=== PATIENT | male | born 1940 | race Caucasian/White ===

== ENCOUNTER 2017-03-22 19:26 | Emergency (ER) | payer OTHER ==
[~2017-03-22] VITALS: Ht 177.8 cm; Wt 84.5 kg
[~2017-03-22 19:26] MED LIST: ASPI-428 PO; DOXA4TAB5 PO; FINA5TAB PO; LATA0.5S OP; LORA-741 PO; PROP20TA67 PO; SERT50TA PO; TAMS0.4C38 PO
[2017-03-22 19:31] VITALS: TEMP 36.7; Ht 177.8 cm; Wt 84.5 kg
[2017-03-22] MEDS ORDERED: AMLO-110 PO (19:53)
[2017-03-22] MEDS ORDERED: TRAZ50TA35 PO (19:53)
[2017-03-22] MEDS ORDERED: OMEP40CA41 PO (19:53)
[2017-03-22] MEDS ORDERED: SUCR1TAB PO (19:53)
[2017-03-22 20:16] LABS: BASO % 0.5 %; BASO ABS # 0.03 K/uL (0-0.2); COMPLETE YES; EOS % 2.5 %; HEMATOCRIT 42.1 % (42-52); IG% 0.7 %; LYMPH % 21.3 %; LYMPH ABS # 1.29 K/uL (1.2-3.4); MEAN CELL VOLUME 87.5 fL (80-100); MEAN CORPUSCULAR HEMOGLOBIN 28.7 pg (25-34); MEAN CORPUSCULAR HGB CONC 32.8 g/dl (32-36); MEAN PLATELET VOLUME 10.2 fL (7.4-10.4); MONO % 10.4 %; NEUT % 64.6 %; PLATELET COUNT 177 K/uL (130-400); RED BLOOD COUNT 4.81 M/uL (4.7-6.1); WHITE BLOOD COUNT 6.05 K/uL (4.8-10.8)
--- NOTE | 2017-03-22 20:22 | DIAGNOSTIC IMAGING REPORT ---
KUB CLINICAL HISTORY: Generalized abdominal pain. FINDINGS: 2 AP, portable, supine abdominal radiographs are correlated with abdominal CT dated 10/01/2016. There is a nonobstructed abdominal bowel gas pattern noting moderate constipation. Retained enteric contrast is seen throughout the colon. This outlines scattered diverticula. No evidence of intraperitoneal free air is seen on these supine views. No abnormal abdominal calcifications are identified. Cholecystectomy clips are noted in the right upper quadrant. The skeletal structures are osteopenic. Degenerative change is seen throughout the lumbar spine. There is a compression deformity with evidence of previous vertebroplasty in the thoracic region. The heart is enlarged and there are midline sternotomy wires. The lung bases are grossly clear as imaged. IMPRESSION: 1. Nonobstructed abdominal bowel gas pattern noting moderate constipation. 2. Retained enteric contrast is seen throughout the colon Electronically signed by: Mark Maurice M.D. 03/22/2017 8:20 PM Dictated Date/Time: 03/22/2017 8:18 PM
--- NOTE | 2017-03-22 20:33 | DIAGNOSTIC IMAGING REPORT ---
SINGLE VIEW CHEST CLINICAL HISTORY: Generalized abdominal pain. Atypical chest pain. FINDINGS: An AP, portable, upright chest radiograph is compared to study dated 10/01/2016. The examination is degraded by portable technique and patient rotation. The patient is status post midline sternotomy with evidence of previous mitral valve surgery. The heart is enlarged and there is atherosclerotic calcification of the thoracic aorta. The pulmonary vasculature is noncongested. Chronic interstitial thickening is similar to previous. There is mild elevation of left hemidiaphragm and bibasilar atelectasis. There is no airspace consolidation typical for pneumonia, large pleural effusion, or pneumothorax. The skeletal structures are osteopenic. The bony thorax is grossly intact. IMPRESSION: Cardiomegaly and bibasilar atelectasis. There is no acute cardiopulmonary abnormality. Electronically signed by: Mark Maurice M.D. 03/22/2017 8:32 PM Dictated Date/Time: 03/22/2017 8:30 PM
[2017-03-22 20:40] LABS: ALT/SGPT 158 U/L (12-78); BLOOD UREA NITROGEN 19 mg/dl (7-18); BUN/CREATININE RATIO 17.6 (10-20); CALCIUM 9.4 mg/dl (8.5-10.1); CARBON DIOXIDE 29 mmol/L (21-32); CHLORIDE 107 mmol/L (98-107); GLUCOSE 102 mg/dl (70-99); SODIUM 142 mmol/L (136-145)
[2017-03-22 20:44] LABS: ALKALINE PHOSPHATASE 94 U/L (45-117)
[2017-03-22 20:58] LABS: URINE APPEARANCE CLEAR (CLEAR); URINE BILIRUBIN NEG (NEG); URINE EPITHELIAL CELL AUTO 0-5 /lpf (0-5); URINE NITRITE NEG (NEG); URINE PH 7.5 (4.5-7.5); URINE SPECIFIC GRAVITY 1.012 (1.000-1.030); UROBILINOGEN NEG (NEG)
[2017-03-22 21:05] LABS: URINE COLOR YELLOW
[2017-03-22 21:06] LABS: MANUAL MICROSCOPIC REQUIRED? NO; REVIEW REQ? NO
[2017-03-22 21:14] LABS: POTASSIUM 3.8 mmol/L (3.5-5.1)
[2017-03-22 21:18] LABS: PARTIAL THROMBOPLASTIN RATIO 0.9; PROTHROMBIN TIME (PATIENT) 10.9 SECONDS (9.0-12.0)
[2017-03-22] MEDS ORDERED: CEPH500C2 PO (21:48)
[2017-03-22] MEDS ORDERED: CEPHALEXIN 500MG HOME PACK 1 EA BTL PO ONE (22:00)
[2017-03-22] MEDS ORDERED: CEPHALEXIN MONOHYDRATE 250 MG CAP PO ONE (22:00)
[2017-03-22] MEDS ORDERED: OXYCODONE HCL IR 5 MG TAB (IMMEDIATE RELEASE) PO STA (22:07)
[2017-03-22] MEDS ORDERED: OXYC1TAB3 PO (22:08)
[2017-03-22] MEDS ORDERED: OXYCODONE IR HOME PACK PO ONE (22:15)
[2017-03-22 22:41] VITALS: BP 127/80; PULSE 78; O2SAT 95
--- NOTE | 2017-03-22 23:38 | EMERGENCY ROOM VISIT NOTE ---
History Report prepared by Jackelin: Ilsa Boyd Under the Supervision of: Dr. Hua Patterson D.O. First contact with patient: 19:34 Chief Complaint: ABDOMINAL PAIN Stated Complaint: BLOOD IN URINE,ABD PAIN,CHEST PAIN History of Present Illness The patient is a 77 year old male who presents to the Emergency Room with complaints of an episode of abdominal pain starting three months ago. The patient states that he has a history of kidney stones and stents placed. He reports that he was told that if he starts to experience hematuria, fevers, and chills to call into the ED. He reports that he did and they told him to follow up with his PCP. He reports that they found nothing wrong and that it was just blood in his urine. He reports that yesterday he went to his PCP who sent him to the [facility]. The patient states that they found nothing wrong and told him to follow up with his PCP in three days. He reports he came here because he wants to know if it's another kidney stone. He complains of back pain , intermittent hematuria, chest pain, and fevers. He denies nausea, vomiting, shortness of breath, and swelling in legs. Source of History: patient Onset: three months ago Position: abdomen Quality: other (global) Timing: other (episode) Associated Symptoms: + back pain, + chest pain, + fevers, No SOB, No nausea , No vomiting Note: The patient complains of hematuria. The patient denies swelling in legs. Review of Systems See HPI for pertinent positives & negatives. A total of 10 systems reviewed and were otherwise negative. Past Medical & Surgical Surgical Problems: (1) History of appendectomy (2) Hx of cholecystectomy Family History No pertinent family history Social History Smoking Status: Former Smoker Alcohol Use: none Marital Status: Housing Status: lives with significant other Occupation Status: retired Current/Historical Medications Scheduled Amlodipine (Norvasc), 5 MG PO QAM Aspirin (Ecotrin Low Strength), 1 TAB PO DAILY Cephalexin Monohydrate (Keflex), 500 MG PO QID Latanoprost (Xalatan 0.005% Oph Annalisa), 1 DROPS OP HS Omeprazole (Prilosec), 40 MG PO QAM Trazodone Hcl (Trazodone), 50 MG PO HS Scheduled PRN Lorazepam (Ativan), 0.5 MG PO Q6H PRN for Anxiety/Agitation Oxycodone Immediate Rel Tab (Roxicodone Ir), 1-2 TAB PO Q4H PRN for Severe Pain Sucralfate (Sucralfate), 1 TAB PO QID PRN for PRN Allergies Coded Allergies: Nitroglycerin (Unverified Allergy, Unknown, UNKNOWN, 03/22/17) TOLD NEVER TO TAKE PER DOCTOR Oxycodone (Verified Adverse Reaction, Unknown, GI DISTRESS, 03/22/17) Physical Exam Vital Signs Date Time Temp Pulse Resp B/P Pulse Ox O2 Delivery O2 Flow Rate FiO2 03/22/17 22:41 78 20 127/80 95 03/22/17 20:12 92 18 157/82 94 Room Air 03/22/17 20:11 88 03/22/17 19:31 36.7 89 20 149/82 94 Room Air Physical Exam GENERAL: Patient is awake, alert, and in no acute distress. Patient is resting comfortably and showing no signs of anxiety EYES: The conjunctivae are clear. The pupils are round and reactive. EARS, NOSE, MOUTH AND THROAT: The nose is without any evidence of any deformity. Mucous membranes are moist tongue is midline NECK: The neck is nontender and supple. RESPIRATORY: Normal respiratory effort is noted there is no evidence of wheezing rhonchi or rales CARDIOVASCULAR: Regular rate and rhythm noted there no murmurs rubs or gallops normal S1 normal S2 GASTROINTESTINAL: The abdomen is soft. Bowel sounds are present in all quadrants. Abdomen is mildly distended, mild tenderness to palpitation. No guarding or rigidity. BACK: No midline tenderness to palpitation or or step-off noted range of motion in flexion extension as well as rotation no signs of muscle spasm noted. ROM intact. MUSCULOSKELETAL/EXTREMITIES: There is no evidence of gross deformity full range of motion is noted in the hips and shoulders SKIN: There is no obvious evidence of any rash. There are no petechiae, pallor or cyanosis noted. NEUROLOGIC: Patient is awake alert and oriented x3 strength is symmetric patellar reflexes are 2+ bilaterally Medical Decision & Procedures ER Provider Diagnostic Interpretation: Radiology results as stated below per my review and radiologist interpretation: SINGLE VIEW CHEST CLINICAL HISTORY: Generalized abdominal pain. Atypical chest pain. FINDINGS: An AP, portable, upright chest radiograph is compared to study dated 10/01/2016. The examination is degraded by portable technique and patient rotation. The patient is status post midline sternotomy with evidence of previous mitral valve surgery. The heart is enlarged and there is atherosclerotic calcification of the thoracic aorta. The pulmonary vasculature is noncongested. Chronic interstitial thickening is similar to previous. There is mild elevation of left hemidiaphragm and bibasilar atelectasis. There is no airspace consolidation typical for pneumonia, large pleural effusion, or pneumothorax. The skeletal structures are osteopenic. The bony thorax is grossly intact. IMPRESSION: Cardiomegaly and bibasilar atelectasis. There is no acute cardiopulmonary abnormality. Electronically signed by: Mark Maurice M.D. 03/22/2017 8:32 PM Dictated Date/Time: 03/22/2017 8:30 PM KUB CLINICAL HISTORY: Generalized abdominal pain. FINDINGS: 2 AP, portable, supine abdominal radiographs are correlated with abdominal CT dated 10/01/2016. There is a nonobstructed abdominal bowel gas pattern noting moderate constipation. Retained enteric contrast is seen throughout the colon. This outlines scattered diverticula. No evidence of intraperitoneal free air is seen on these supine views. No abnormal abdominal calcifications are identified. Cholecystectomy clips are noted in the right upper quadrant. The skeletal structures are osteopenic. Degenerative change is seen throughout the lumbar spine. There is a compression deformity with evidence of previous vertebroplasty in the thoracic region. The heart is enlarged and there are midline sternotomy wires. The lung bases are grossly clear as imaged. IMPRESSION: 1. Nonobstructed abdominal bowel gas pattern noting moderate constipation. 2. Retained enteric contrast is seen throughout the colon Electronically signed by: Mark Maurice M.D. 03/22/2017 8:20 PM Dictated Date/Time: 03/22/2017 8:18 PM Laboratory Results 03/22/17 20:02 Red Blood Count 4.81, Mean Corpuscular Volume 87.5, Mean Corpuscular Hemoglobin 28.7, Mean Corpuscular Hemoglobin Concent 32.8, Mean Platelet Volume 10.2, Neutrophils (%) (Auto) 64.6, Lymphocytes (%) (Auto) 21.3, Monocytes (%) (Auto) 10.4, Eosinophils (%) (Auto) 2.5, Basophils (%) (Auto) 0.5, Neutrophils # (Auto ) 3.91, Lymphocytes # (Auto) 1.29, Monocytes # (Auto) 0.63, Eosinophils # (Auto ) 0.15, Basophils # (Auto) 0.03 03/22/17 20:02 03/22/17 20:48 Test 03/22/17 20:02 03/22/17 20:42 03/22/17 20:48 White Blood Count 6.05 K/uL (4.8-10.8) Red Blood Count 4.81 M/uL (4.7-6.1) Hemoglobin 13.8 g/dL (14.0-18.0) Hematocrit 42.1 % (42-52) Mean Corpuscular Volume 87.5 fL (80-100) Mean Corpuscular Hemoglobin 28.7 pg (25-34) Mean Corpuscular Hemoglobin Concent 32.8 g/dl (32-36) Platelet Count 177 K/uL (130-400) Mean Platelet Volume 10.2 fL (7.4-10.4) Neutrophils (%) (Auto) 64.6 % Lymphocytes (%) (Auto) 21.3 % Monocytes (%) (Auto) 10.4 % Eosinophils (%) (Auto) 2.5 % Basophils (%) (Auto) 0.5 % Neutrophils # (Auto) 3.91 K/uL (1.4-6.5) Lymphocytes # (Auto) 1.29 K/uL (1.2-3.4) Monocytes # (Auto) 0.63 K/uL (0.11-0.59) Eosinophils # (Auto) 0.15 K/uL (0-0.5) Basophils # (Auto) 0.03 K/uL (0-0.2) RDW Standard Deviation 50.7 fL (36.4-46.3) RDW Coefficient of Variation 15.7 % (11.5-14.5) Immature Granulocyte % (Auto) 0.7 % Immature Granulocyte # (Auto) 0.04 K/uL (0.00-0.02) Anion Gap 6.0 mmol/L (3-11) Est Creatinine Clear Calc Drug Dose 59.9 ml/min Estimated GFR () 75.7 Estimated GFR (Non- 65.3 BUN/Creatinine Ratio 17.6 (10-20) Calcium Level 9.4 mg/dl (8.5-10.1) Total Bilirubin 0.8 mg/dl (0.2-1) Alanine Aminotransferase (ALT/SGPT) 158 U/L (12-78) Alkaline Phosphatase 94 U/L (45-117) Troponin I < 0.015 ng/ml (0-0.045) Total Protein 6.7 gm/dl (6.4-8.2) Albumin 3.7 gm/dl (3.4-5.0) Lipase 259 U/L (73-393) Urine Color YELLOW Urine Appearance CLEAR (CLEAR) Urine pH 7.5 (4.5-7.5) Urine Specific [place] 1.012 (1.000-1.030) Urine Protein NEG (NEG) Urine Glucose (UA) NEG (NEG) Urine Ketones NEG (NEG) Urine Occult Blood 3+ (NEG) Urine Nitrite NEG (NEG) Urine Bilirubin NEG (NEG) Urine Urobilinogen NEG (NEG) Urine Leukocyte Esterase NEG (NEG) Urine WBC (Auto) 0 /hpf (0-5) Urine RBC (Auto) >30 /hpf (0-4) Urine Hyaline Casts (Auto) 0 /lpf (0-5) Urine Epithelial Cells (Auto) 0-5 /lpf (0-5) Urine Bacteria (Auto) NEG (NEG) Prothrombin Time 10.9 SECONDS (9.0-12.0) Prothromb Time International Ratio 1.0 (0.9-1.1) Activated Partial Thromboplast Time 24.3 SECONDS (21.0-31.0) Partial Thromboplastin Ratio 0.9 Direct Bilirubin 0.2 mg/dl (0-0.2) Aspartate Amino Transf (AST/SGOT) 77 U/L (15-37) Laboratory results per my review. Medications Administered Medications (Trade) Dose Ordered Sig/Esme Route Start Time Stop Time Status Last Admin Dose Admin Cephalexin Monohydrate (Keflex 500MG Home Pack) 1 homepack NOW ONCE PO 03/22/17 22:00 03/22/17 22:01 DC 03/22/17 22:33 1 HOMEPACK Cephalexin Monohydrate (Keflex Cap) 500 mg NOW ONCE PO 03/22/17 22:00 03/22/17 22:01 DC 03/22/17 22:33 500 MG Oxycodone HCl (Roxicodone Immediate Rel Tab) 5 mg NOW STAT PO 03/22/17 22:07 03/22/17 22:08 DC 03/22/17 22:33 5 MG Oxycodone HCl (Roxicodone Immediate Rel 5MG Home Pack) 1 homepack UD ONCE PO 03/22/17 22:15 03/22/17 22:16 DC 03/22/17 22:33 1 HOMEPACK ECG Indication: abdominal pain Rate (beats per minute): 84 Rhythm: normal sinus Findings: nonspecific-ST abn, PVC Comparison ECG Date: 03/21/2017 Change: no significant change ED Course 1942: The patient was evaluated in room C1. A complete history and physical examination were performed. 2145: I discussed the patient's case with Dr. Cortes. 2199: Orderd Keflex Cap 500 mg PO, Keflex 500 MG Home Pack 1 homepack PO. 2206: Ordered Oxycodone HCl 5 mg PO. 2214: Ordered Oxycodone HCl 1 homepack PO. 2219: Upon reevaluation, the patient is resting comfortably. I discussed the results and treatment plan with him. The patient verbalized agreement of the treatment plan. He was discharged home. Medical Decision Differential diagnosis: Etiologies such as renal colic, appendicitis, diverticulitis, mesenteric ischemia, aortic pathology, infections, inflammatory bowel disease, PUD, biliary pathology, UTI, as well as others were entertained. Nursing notes reviewed. The patient is a 77-year-old male who presented to emergency department for an evaluation of hematuria. The patient complained of suprapubic pain but mostly this was painless hematuria at this time. The patient is a history of kidney stones. He was seen at [facility] yesterday for similar complaints and had a complete workup. I discussed the patient's laboratory and radiographic studies with him this evening. I also discussed his case with the on-call [facility] urologist. At this time I feel the patient can safely follow up as an outpatient. It is possible this represents an infection so he was started on antibiotic. It is also possible this could represent some other underlying pathology in his system. He was encouraged to follow-up with the urologist as soon as possible for reevaluation or return to the emergency department immediately if symptoms change worsen or the need arises. Consults Time Called: 2134 Consulting Physician: Dr. Cortes Returned Call: 2145 I discussed the patient's case with Dr. Cortes. Impression Primary Impression: Hematuria Scribe Attestation The scribe's documentation has been prepared under my direction and personally reviewed by me in its entirety. I confirm that the note above accurately reflects all work, treatment, procedures, and medical decision making performed by me. Departure Information Dispostion Home / Self-Care Prescriptions Oxycodone Immediate Rel Tab (ROXICODONE IR) 5 Mg Tab 1-2 TAB PO Q4H Y for Severe Pain, #24 TAB Prov: Hua Patterson, DO 03/22/17 Cephalexin Monohydrate (KEFLEX) 500 Mg Cap 500 MG PO QID, #28 CAP Prov: Hua Patterson, DO 03/22/17 Referrals Tyler Rojas M.D. (PCP) Forms HOME CARE DOCUMENTATION FORM, IMPORTANT VISIT INFORMATION Patient Instructions My [facility] Additional Instructions Call the urologist to schedule a follow-up appointment for this week. Drink plenty clear liquids. Continue all medications as prescribed.
== END 2017-03-22 22:43 | disposition home or self-care (01) ==
LOC: C.EDB 19:28 → C.EDC 22:43
DX: R31.9 Hematuria, unspecified (principal); Z90.49 Acquired absence of other specified parts of digestive tract; Z98.890 Other specified postprocedural states; Z79.82 Long term (current) use of aspirin; Z79.899 Other long term (current) drug therapy; Z88.5 Allergy status to narcotic agent; Z88.8 Allergy status to other drugs, medicaments and biological substances